=== PATIENT | female | born 1955 | race Caucasian/White ===

== ENCOUNTER → 2017-12-14 | Outpatient (CLI) | payer OTHER ==
[~2017-12-14] MED LIST: APIX1TAB PO; ASPI-113 PO; CLON1TAB3 PO; CYCL10TA6 PO; DSY/150 PO; ESCI1TAB18 PO; FENT75DI2 TOP; HYDR25CA PO; LSX20 PO; MISCCAP80 PO; MORP1TAB13 PO; NALO1TAB2 PO; OMEP40CA41 PO; ONDA4TAB46 PO; OXYC-106 PO; OXYC20TA50 PO; POLY335019 PO; POTA10CA28 PO; PRAV80TA2 PO; VITA1CAP5 PO; WARF-246 PO
[2017-12-14 13:18] LABS: BASO % 0.3 %; BASO ABS # 0.03 K/uL (0-0.2); EOS % 1.4 %; EOS ABS # 0.12 K/uL (0-0.5); HEMATOCRIT 44.2 % (37-47); HEMOGLOBIN 15.1 g/dL (12.0-16.0); IG# 0.02 K/uL (0.00-0.02); LYMPH % 24.7 %; LYMPH ABS # 2.19 K/uL (1.2-3.4); MEAN CELL VOLUME 95.3 fL (80-100); MEAN CORPUSCULAR HEMOGLOBIN 32.5 pg (25-34); MEAN CORPUSCULAR HGB CONC 34.2 g/dl (32-36); MONO % 5.9 %; MONO ABS # 0.52 K/uL (0.11-0.59); NEUT % 67.5 %; PLATELET COUNT 196 K/uL (130-400); RED CELL DISTRIBUTION WIDTH CV 13.3 % (11.5-14.5); RED CELL DISTRIBUTION WIDTH SD 46.1 fL (36.4-46.3); WHITE BLOOD COUNT 8.88 K/uL (4.8-10.8)
[2017-12-14 13:39] LABS: BLOOD UREA NITROGEN 12 mg/dl (7-18); CALCIUM 9.5 mg/dl (8.5-10.1); CARBON DIOXIDE 31 mmol/L (21-32); CREATININE 0.78 mg/dl (0.60-1.20); GLUCOSE 97 mg/dl (70-99); POTASSIUM 4.4 mmol/L (3.5-5.1); SODIUM 140 mmol/L (136-145)
== END | disposition home or self-care (01) ==
LOC: C.CPL 11:37
PROVIDERS: ATTEND Orthopaedic Surgery
DX: Z01.812 Encounter for preprocedural laboratory examination (principal); Z01.810 Encounter for preprocedural cardiovascular examination; M75.02 Adhesive capsulitis of left shoulder

== ENCOUNTER → 2018-01-06 | Day surgery (SDC) | payer OTHER ==
[2017-12-14 13:46] VITALS: Ht 167.6 cm; Wt 74.1 kg
[~2018-01-06] VITALS: Ht 167.6 cm; Wt 74.1 kg
[~2018-01-06] MED LIST changes: -ASPI-113 PO; +ATROPINE SULFATE 0.1 MG/ML 5ML SYR IV PRN; +BUPIVACAINE 0.5 % 5 MG/1 ML PF 10ML VIAL ONE; +EpHEDrine SULFATE INJ 50 MG/ML AMP IV PRN; -FENT75DI2 TOP; +FENTANYL CITRATE INJ 50 MCG/1 ML 2 ML VIAL IV PRN; +LACTATED RINGER'S 1000ML 1,000 ML IV SCH; +LIDOCAINE HCL 2% 2 ML VIAL (20MG/ML) ONE; +METHYLPREDNISOLONE ACETATE 80 MG/ML VIAL ONE; +MIDAZOLAM HCL 1 MG/ML 2ML VIAL ONE; -MISCCAP80 PO; +ONDANSETRON INJ 2 MG/ML 2 ML VIAL IV PRN; -OXYC-106 PO; -PRAV80TA2 PO; +PROPOFOL IV EMULSION 10 MG/ML 20 ML VIAL IV ONE; +ROPIVACAINE 0.5% 5 MG/ML 30 ML VIAL ONE; +SODIUM CHLORIDE 0.9% 1000ML 1,000 ML IV SCH; +TRAM-10 PO; +TRAMADOL HCL 50 MG TAB PO PRN; -WARF-246 PO
--- NOTE | 2018-01-06 13:05 | History & Physical Bridge - [place] ---
H&P Re-Evaluation Bridge Note: I have examined the patient, reviewed the History & Physical and in the interval since the performance of the History & Physical I have noted the following changes of clinical significance: No changes noted
--- NOTE | 2018-01-06 13:57 | [facility] Post Operative Brief Note ---
Immediate Operative Summary Operative Date Jan 06, 2018. Pre-Operative Diagnosis Adhesive capsulitis left shoulder Post-Operative Diagnosis Same as pre-op Procedure(s) Performed Left shoulder manipulation under anesthesia Surgeon Pitch Filler Surgeon(s) None Estimated Blood Loss zero Findings Consistent with Post-Op Diagnosis Specimens None Anesthesia Type MAC Disposition Disposition: Recovery Room / PACU
[2018-01-06 14:00] VITALS: TEMP 36.8
--- NOTE | 2018-01-06 14:08 | Discharge Instructions-SurgCtr ---
Discharge Instructions Date of Service Jan 06, 2018. Visit Reason for Visit: Left Shoulder Adhesive Capsulitis Discharge Discharge Diagnosis / Problem: SAME ABOVE Discharge Goals Goal(s): Decrease discomfort, Improve function Medications Stopped Medications Name(s): stopped sudha on wednesday 01/03 Restart Stopped Medication(s): MARCH RESTART 01/06/2018 Activity Recommendations Activity Limitations: as noted below Lifting Limitations: gradually increase as tolerated Exercise/Sports Limitations: gradually increase as tolerated Shower/Bathe: no limitations Driving or Machine Use: WHEN OUT OF THE SLING Anesthesia . Post Anesthesia Instructions: If you have had General Anesthesia or IV Sedation: * Do not drive today. * Resume driving when surgeon permits. * Do not make important decisions or sign legal documents today. * Call surgeon for: 1. Temperature elevations greater than 101 degrees F. 2. Uncontrollable pain. 3. Excessive bleeding. 4. Persistent nausea and vomiting. 5. Medication intolerance (nausea, vomiting or rash). * For nausea and vomiting use only clear liquids such as: tea, soda, bouillon until nausea subsides, then gradually increase diet as tolerated. * If you have any concerns or questions, call your surgeon's office. If physician is unavailable and it is an emergency, call 911 or go to the nearest emergency room. . Instructions / Follow-Up Instructions / Follow-Up MEDICATIONS: * Resume previous medications unless instructed otherwise by your surgeon. * Always take pain medication on a full stomach or with food to avoid upset stomach. * Do not drink alcohol or drive while taking narcotics. * Ibuprofen or Tylenol may be taken if narcotic not needed. SPECIAL CARE INSTRUCTIONS: __ None _X_ Keep extremity elevated and iced x 48 hours; apply ice 20-30 minutes 8-10 times/day. May remove at night. _X_ Sling (REMOVE TOMORROW) __24 hrs/day __ Remove at night __ Shoulder Immobilizer __ 24 hrs/day __ Remove at night __ Dressing __ Maintain until seen in office, may shower with plastic over site __ Remove dressings in 24-48 hours and then may shower __ Cover incisions with band-aids after showering __ Do not remove steri-strips Call physician if chills or temperature rises above 102 degrees or pain unrelieved by prescribed pain medications at . . Diet Recommendations Home Diet: no limitations Procedures Procedures Performed: Left shoulder manipulation under anesthesia Pending Studies Studies pending at discharge: no Work Instructions Return To Work: 3 days (OR WHEN PAIN IS TOLERATED ) Lifting Limitations: none Medical Emergencies . Who to Call and When: Medical Emergencies: If at any time you feel your situation is an emergency, please call 911 immediately. . Non-Emergent Contact Non-Emergency issues call your: Primary Care Provider Call Non-Emergent contact if: you have a fever, temperature is above 101.5 . . "Provider Documentation" section prepared by Alok Pak. .
--- NOTE | 2018-01-06 14:36 | Anesthesia Progress Nt - [facility] ---
Anesthesia Post Op Note Date & Time Jan 06, 2018 at 14:35 Vital Signs Vital Signs Past 12 Hours Date Time Temp Pulse Resp B/P (MAP) Pulse Ox O2 Delivery O2 Flow Rate FiO2 01/06/18 14:00 36.8 58 12 101/63 (76) 94 Room Air 01/06/18 13:41 117/74 01/06/18 13:39 56 15 97 01/06/18 13:39 56 01/06/18 13:36 112/69 01/06/18 13:34 57 01/06/18 13:34 57 16 97 01/06/18 13:31 117/71 01/06/18 13:29 57 01/06/18 13:29 57 17 97 01/06/18 13:28 58 01/06/18 13:28 59 27 97 01/06/18 13:26 105/72 01/06/18 13:23 58 15 97 01/06/18 13:23 58 01/06/18 13:21 89/74 01/06/18 13:18 56 13 99 01/06/18 13:18 56 01/06/18 13:17 65 01/06/18 13:17 65 10 98 01/06/18 13:16 131/96 01/06/18 13:12 57 01/06/18 13:12 57 15 98 01/06/18 13:10 106/63 01/06/18 13:07 57 01/06/18 13:07 56 0 95 01/06/18 13:02 64 0 94 01/06/18 13:02 63 01/06/18 12:57 59 0 95 01/06/18 12:57 59 01/06/18 12:21 36.8 60 18 117/68 (84) 97 Room Air Notes Mental Status: alert / awake / arousable, participated in evaluation Pt Amnestic to Procedure: Yes Nausea / Vomiting: adequately controlled Pain: adequately controlled Airway Patency, RR, SpO2: stable & adequate BP & HR: stable & adequate Hydration State: stable & adequate Anesthetic Complications: no major complications apparent
[2018-01-06 14:47] VITALS: BP 116/71; PULSE 57; O2SAT 97
--- NOTE | 2018-01-06 21:37 | OPERATIVE REPORT ---
DATE OF OPERATION: 01/06/2018 PREOPERATIVE DIAGNOSIS: Adhesive capsulitis of the left shoulder. POSTOPERATIVE DIAGNOSIS: Left shoulder pain, possible cervical radiculopathy. PROCEDURE: Examination and manipulation of the left shoulder under anesthesia. SURGEON: Miah Goldman DO. FIELD SUPERINTENDENT: None. ANESTHESIA: Sedation with a left interscalene nerve block. COMPLICATION: None. CONDITION: Stable to PACU. INDICATIONS: Renée is a 62-year-old female who has been dealing with chronic neck and left shoulder pain. She did have a cervical fusion in the past. She was still having shoulder pain, so I did a subacromial decompression, distal clavicle resection, open biceps tenodesis on her 3 years ago. Her symptoms have waxed and waned and recently her shoulder has gotten much more painful. I got a followup MRI which was negative. SHE IS UNABLE TO HAVE ANY CORTISONE BECAUSE IT CAUSES SEVERE DEPRESSION. While in the office, she has very limited range of motion and hard end points and she fights me a lot. MRI showed no pathology other than a thickened capsule. I thought she may have an adhesive capsulitis, so we elected to proceed with manipulation under anesthesia. DESCRIPTION OF PROCEDURE: On 01/06/2018, she arrived at [facility] for the above procedure. She was seen in the preoperative holding area and the operative extremity was identified and signed. She was given a left interscalene nerve block, taken back to the operating room, laid on table in supine position and put under basic sedation. A timeout was done, and the patient and operative extremity was properly identified. Once she was properly anesthetized, the shoulder was brought through a full range of motion. I was able to fairly easily get full range of motion of her shoulder. I did not get any breaking up of the capsule. At very end ranges of motion, I got a little bit of breaking up of the capsule but really not much. I did a full stability examination on her and I got no evidence of any instability. There was no clicking in her shoulder. Her shoulder motion felt normal. Because of her ALLERGY TO STEROIDS and severe depression and suicidal thoughts it may cause, I am unable to add a cortisone injection. She was then taken to the postanesthesia care unit in stable condition and she tolerated the procedure well. I attest to the content of the Intraoperative Record and any orders documented therein. Any exception s are noted below.
== END | disposition home or self-care (01) ==
LOC: X.SURG 11:55
PROVIDERS: ATTEND Orthopaedic Surgery
DX: M75.02 Adhesive capsulitis of left shoulder (principal); M32.9 Systemic lupus erythematosus, unspecified; D64.9 Anemia, unspecified; G47.33 Obstructive sleep apnea (adult) (pediatric); K21.9 Gastro-esophageal reflux disease without esophagitis; Z86.711 Personal history of pulmonary embolism; Z99.89 Dependence on other enabling machines and devices